=== PATIENT | male | born 1940 | race Caucasian/White ===

== ENCOUNTER → 2024-08-22 13:47 | Outpatient (REF) | payer OTHER, SELFPAY | LOC: RAD 13:47 | PROVIDERS: ATTENDING PHYSICIAN Family Medicine | DX: R05.3 Chronic cough (principal) | CPT/HCPCS: 71046 ==

== ENCOUNTER → 2024-09-05 11:38 | Outpatient (REF) | payer OTHER, SELFPAY | LOC: RAD 11:38 | PROVIDERS: ATTENDING PHYSICIAN Specialist; FAMILY PHYSICIAN Family Medicine | DX: N20.0 Calculus of kidney (principal) | CPT/HCPCS: 74018 ==

== ENCOUNTER 2024-09-06 03:58 | Emergency (ER) | payer OTHER, SELFPAY ==
[2024-09-06 04:02] VITALS: BP 150/94
[2024-09-06 04:27] VITALS: BP 161/100
[2024-09-06 04:48] VITALS: BMI 29.8
[2024-09-06] MEDS: NSS 1000 IV (04:52)
[2024-09-06 04:53] LABS: % Basophils 0.3 % (0-2); % Eosinophils 0.2 % (0-6); % Immature Granulocytes 0.4 % (0-0.5); % Monocytes 8.1 % (1.7-9.3); Absolute Immature Granulocytes 0.1 10^3/uL (0-0.05); Absolute Lymphocytes 1.2 10^3/uL (1.2-3.4); Absolute Neutrophils 9.8 10^3/uL (1.4-6.5); Hematocrit 42.9 % (39.0-52.0); Hemoglobin 15.6 g/dL (13.0-18.0); Mean Corp Hgb Conc. 36.4 g/dL (33.0-37.0); Mean Corpuscular Hgb 32.5 pg (27.0-31.0); Mean Corpuscular Volume 89.4 fL (80.0-94.0); Mean Platelet Volume 9.4 fL (7.4-10.4); Nucleated Red Blood Cells % 0 % (-); Platelet Count 206 10^3/uL (130-400); Red Cell Dist. Width 13.2 % (11.5-14.5); White Blood Cell Count 12.1 10^3/uL (4.8-10.8)
[2024-09-06] MEDS: MORPHINE SULFATE 4 MG IV (04:54)
[2024-09-06 05:00] VITALS: BP 150/81
[2024-09-06 05:12] LABS: Urine Albumin 1+ (Neg - Trace); Urine Bilirubin Negative (Negative); Urine Character Clear (Clear); Urine Color Yellow; Urine Glucose Negative (Negative); Urine Ketone 2+ (Negative); Urine Leukocyte Negative (Negative); Urine Nitrite Negative (Negative); Urine Occult Blood 4+ (Negative); Urine Urobilinogen Negative (Neg - 1+)
[2024-09-06 05:22] LABS: ALT (SGPT) 20 U/L (0-50); AST (SGOT) 27 U/L (17-59); Albumin 4.3 g/dl (3.5-5.0); Alkaline Phosphatase 74 U/L (38-126); Blood Urea Nitrogen 12 mg/dl (9-20); Calcium 9.9 mg/dl (8.4-10.2); Carbon Dioxide 27 mmol/L (22-30); Chloride 103 mmol/L (98-107); Estimated Creatinine Clearance 58 ml/min; Glucose 133 mg/dl (70-99); Sodium 138 mmol/L (135-145); Total Bilirubin 1.1 mg/dl (0.2-1.3); Total Protein 7.3 g/dl (6.3-8.2); eGFR > 60.00
--- NOTE | 2024-09-06 05:37 | ED.GENMED ---
History of Present Illness
General
Chief Complaint: Flank Pain
Time Seen by Provider: 09/06/24 04:21
History of Present Illness
History of Present Illness:
84-year-old male with history of hemophilia B (reportedly mild), A-fib, hypertension presenting to the emergency department for left lower back pain. Patient reports symptoms started yesterday. He reports that he had some discoloration to his
urine, described as 'burnt orange '. He called his urologist who advised that he get an outpatient urine test and x-ray of his abdomen. Later in the evening, started to develop pain, which prompted him to come to the hospital. Denies known
history of kidney stones. Denies any abdominal pain. Does report nausea and vomiting. Denies fever. Denies chest pain or difficulty breathing. Denies rosalie hematuria. Denies additional acute medical complaints.
Past History
Past History
ED Past Medical History: Cancer (Basal cell carcinoma removal), GERD, HTN, Other (Factor IX deficiency/hemophilia, migraine headaches, diverticulosis) and Other (Hypertension, PVCs, hemophilia B., von Willebrand's disease)
ED Past Surgical History: Cardiac (Pericardiocentesis on 08/15/2014), Urological (Prostatectomy 2003) and Other (Hiatal hernia repair 1959)
Social History
Tobacco: Former smoker
Alcohol: Occasional
Drug: None
Personal:
Living: with family
Employment: Retired
Family History
Family History: Other ([place])
Phy Exam
Physical Exam
Physical Exam:
General: Well-appearing, no clinical signs of dehydration, nontoxic and in no acute distress
HEENT: protecting airway
Neck: appears supple
CV: Normal heart rate, regular rhythm
Resp: No accessory muscle use, no increased work of breathing, lungs clear to auscultation bilaterally
Abd: Soft and non-distended, no tenderness to palpation. Left CVA tenderness
Extremities: No deformities, no swelling
Neuro: alert, no focal neurologic deficit
: deferred
Rectal: deferred
Psych: Normal affect
Skin: Intact
Sepsis
Sepsis Screening
Sepsis Assessment: Sepsis Ruled Out
Sepsis Screen
Sepsis Screen: Sepsis Ruled Out
Date: 09/06/24
Time: 06:27
Course
Orders/Labs/Results
Orders:
Orders
09/06/24 04:29
0.9% Sodium Chloride 1000 ml [Nss] 1,000 ml IV BOLUS
Ondansetron Injectable [Zofran] 4 mg IV NOW STA
09/06/24 04:33
CMP [Comprehensive Metabolic Panel] Urgent
Complete Blood Count/With Diff Urgent
Urinalysis Reflex To Culture Urgent
Date Specimen was Collected: 09/06/24
Time Specimen was Collected: 04:31
Urine Microscopic Reflex Cult Urgent
Urine Culture Urgent
MARY GRACE Source: U
Specimen Description:
Date Specimen was Collected: 09/06/24
Time Specimen was Collected: 04:31
09/06/24 04:47
CT Abd/pel Without Iv Or Oral Urgent
Comment:
Reason For Exam: L-flank, suspected stone
Morphine Sulfate 4 mg IV NOW STA
09/06/24 05:37
Ondansetron Injectable [Zofran] 4 mg IV NOW STA
09/06/24 06:19
Tamsulosin [Flomax] 0.4 mg PO NOW STA
Abnormal Lab Results
09/06/24
04:33
WBC 12.1 H 10^3/uL
(4.8-10.8)
MCH 32.5 H pg
(27.0-31.0)
Abs Immat Gran (auto) 0.1 H 10^3/uL
(0-0.05)
Absolute Neuts (auto) 9.8 H 10^3/uL
(1.4-6.5)
Absolute Monos (auto) 1.0 H 10^3/uL
(0.1-0.6)
Neutrophils % 81.0 H %
(42.2-75.2)
Lymphocytes % 10.0 L %
(20.5-51.1)
Glucose 133 H mg/dl
(70-99)
Urine Ketones 2+ A
(Negative)
Ur Occult Blood Reflex 4+ A
(Negative)
Urine RBC >100 A /HPF
(0-2)
Urine WBC (Reflex) 11-15 A /HPF
(0-5)
Urine Bacteria (Reflex) Moderate A
(Negative)
Urine Albumin (Reflex) 1+ A
(Neg - Trace)
09/06/24 04:33
09/06/24 04:33
Vital Signs
Initial and Last Documented VS:
Initial Vital Signs
Temp Pulse Resp BP Pulse Ox
97.8 F 80 20 150/94 97
09/06/24 04:02 09/06/24 04:02 09/06/24 04:02 09/06/24 04:02 09/06/24 04:02
Last Documented Vital Signs
Temp Pulse Resp BP Pulse Ox
97.8 F 83 26 150/81 94
09/06/24 04:02 09/06/24 05:00 09/06/24 05:00 09/06/24 05:00 09/06/24 05:00
MDM/Problems Addressed
MDM/Problems Addressed:
84-year-old male with history of hemophilia B (reportedly mild), hypertension, A-fib presenting with left flank pain and discolored urine. Vital signs significant for mild hypertension.
On exam, patient is resting comfortably, no acute distress, slightly uncomfortable secondary to pain. Patient's symptoms appear consistent with likely kidney stone. Review of patient's x-ray from yesterday does show multiple renal stones. Lower
suspicion for infected stone, afebrile. Plan for urinalysis and CT imaging of the abdomen for further assessment.
06:10 - Patient with mild leukocytosis. Urine does show some bacteria, however no significant signs for UTI. CT is consistent with a 3 mm stone in the left mid ureter, compatible with obstructive uropathy. There is mention of the bladder being
markedly distended, correlate for urinary retention. On reassessment of patient, notes that his pain is much improved. He notes that he chronically has bladder distention, known to him. Patient would prefer to go home. Remains hemodynamically
stable, feel reasonable, nontoxic. Will start patient on Flomax. Will send prescription for Percocet for pain. Patient has close relationship with his urologist, advised calling his office for follow-up appointment. Strict return precautions
communicated including any worsening of pain, vomiting with inability to tolerate food or liquid by mouth, development of fever, or any hematuria. Patient verbalized understanding
*Critical Care Note
Total Time (30-74mins, 75-104mins- exclusive of procedures): Not Applicable
ED Attending Note
-
Portions of this chart may have been created with voice recognition software.� Occasional wrong word or��sound alike� substitutions may have occurred due to the inherent limitations of voice recognition software.
Discharge Plan
Departure
Patient Disposition: Home (Routine Discharge)
Date of Disposition: 09/06/24
Time of Disposition: 06:20
Patient with high blood pressure during this ER visit?: Yes
Condition: Good
Discharge Problem:
Calculus of left ureter
Instructions: Kidney Stones (DC), How to Strain Your Urine
Prescriptions:
New
tamsulosin [Flomax] 0.4 mg capsule
0.4 mg PO DAILY 7 Days Qty: 7 0RF
oxycodone-acetaminophen [Endocet] 5-325 mg tablet
1 tab PO Q8H PRN (Reason: Pain) Qty: 10 0RF
No Action
cetirizine 10 MG tablet
10 mg PO DAILY
sumatriptan succinate 50 MG tablet
50 mg PO DAILYPRN PRN (Reason: migraine)
acetaminophen 325 MG tablet
650 mg PO Q4HPRN PRN (Reason: HEADACHE/FEVER) Qty: 0 0RF
finasteride 5 MG tablet
5 mg PO HS
atenolol 50 MG tablet
50 mg PO BID
hydrochlorothiazide 12.5 mg Tablet
12.5 mg PO DAILY
Centrum Silver Men 300-600-300 mcg Tablet
1 tab PO QPM
losartan 25 mg tablet
50 mg PO DAILY
Referrals:
Raymundo Raya MD [Active] -
Momo Monte MD [Family Provider] -
Activity Restrictions/Additional Instructions:
You were seen in the emergency department for flank pain
You were found to have a 3 mm stone in the left ureter. You were prescribed Flomax to help pass the stone as well as Percocet for pain. Please follow-up closely with your urologist Dr. Raya. Return immediately with any increased pain,
development of fever, persistent vomiting, or any bright red blood in your urine.
Please follow-up closely with your primary care physician.
Return to the emergency department for any worsening of your symptoms, or any development of chest pain, difficulty breathing, abdominal pain with persistent vomiting and inability to tolerate food or liquid by mouth (concern for dehydration),
weakness, headache or confusion, or any additional symptoms that are concerning to you.
Thank you for choosing [facility].
Interventions
Interventions:
*Risk Screen - Suicide Last Done: 09/06/24 04:02
*General Assessment Last Done: 09/06/24 04:24
*Neglect/Abuse Screening Last Done: 09/06/24 04:02
*ED- Fall Risk Assessment Last Done: 09/06/24 04:24
*ED COVID-19 Vaccine History Last Done: 09/06/24 04:24
GH-Mrvmkd-Jdjguaymzm Assessment Last Done: 09/06/24 04:49
ED-Male Genitourinary Assessment Last Done: 09/06/24 04:49
Discharge Date and Time
Print Language: ICELANDIC
[2024-09-06 05:43] LABS: Urine Calcium Oxalate Crystals Seen; Urine Red Blood Cell >100 /HPF (0-2); Urine Squamous Cell >30 /LPF (Few)
[2024-09-06] MEDS: ZOFRAN 4 MG IV (05:43)
[2024-09-06 05:44] LABS: Urine Bacteria Moderate (Negative)
[2024-09-06] MEDS: FLOMAX 0.4 MG PO (06:34)
[2024-09-06 06:35] VITALS: BP 122/71
== END 2024-09-06 06:48 | disposition home or self-care (01) ==
LOC: EMR 03:58
PROVIDERS: EMERGENCY PHYSICIAN Student in an Organized Health Care Education/Training Program; FAMILY PHYSICIAN Family Medicine
DX: N13.2 Hydronephrosis with renal and ureteral calculous obstruction (principal); I10 Essential (primary) hypertension; D67 Hereditary factor IX deficiency; I48.91 Unspecified atrial fibrillation; Z87.891 Personal history of nicotine dependence
CPT/HCPCS: 99285; 96374; 96375; 96361; 74176; 80053; 81003; 81015; 85025; 87086

== ENCOUNTER → 2024-10-20 13:46 | Outpatient (REF) | payer OTHER, SELFPAY | LOC: HWRCS 13:46 | PROVIDERS: ATTENDING PHYSICIAN Internal Medicine Cardiovascular Disease; FAMILY PHYSICIAN Family Medicine | DX: I48.0 Paroxysmal atrial fibrillation (principal) | CPT/HCPCS: 93306 ==